=== PATIENT | male | born 1995 | race Two or more races ===

== ENCOUNTER 2017-07-30 10:13 | Emergency (ER) | payer OTHER ==
[~2017-07-30] VITALS: Ht 172.7 cm; Wt 68.0 kg
[2017-07-30] MEDS ORDERED: IBUPROFEN 600 MG TAB PO ONE ×3 (10:32→17:45)
[2017-07-30 11:28] LABS: CONDITION Y; DEFINITIVE SEE PRINTOUT; Hematocrit 51.7 % (41.0-53.0); Hemoglobin 18.4 g/dL (13.5-17.5); SUSPECT SEE PRINTOUT
[2017-07-30 11:35] LABS: Albumin 3.8 g/dL (3.4-5.0); Alkaline Phosphatase 69 U/L (45-117); Anion Gap 13 (5-15); Aspartate Aminotransferase 31 U/L (15-37); BUN/Creatinine Ratio 13.1; Bilirubin, Total 1.8 mg/dL (0.2-1.0); Blood Urea Nitrogen 19 mg/dL (7-18); Calcium 8.7 mg/dL (8.5-10.1); Carbon Dioxide 33 mmol/L (21-32); Chloride 71 mmol/L (98-107); GFR African American 77 mL/min; GFR Non-African American 64 mL/min; Glucose 137 mg/dL (74-106)
[2017-07-30 11:36] LABS: Sodium 117 mmol/L (136-145)
[2017-07-30 11:37] LABS: Potassium 2.3 mmol/L (3.5-5.1)
[2017-07-30 11:38] LABS: Mean Corpuscular Hemoglobin 30.8 pg (28.0-32.0); Mean Corpuscular Hgb Conc. 35.5 g/dL (32.0-36.0); Mean Corpuscular Volume 86.6 fL (80.0-100.0); Mean Platelet Volume 9.4 fL (7.4-10.4); Platelet Count (auto) 212 10^3/uL (140-450); White Blood Cell 16.9 10^3/uL (4.4-10.8)
[2017-07-30] MEDS ORDERED: SODIUM CHLORIDE 0.9% 1,000 ML IV ONE ×3 (11:38→14:55)
[2017-07-30] MEDS ORDERED: POTASSIUM CHL 10% (20 MEQ/15ML) 15ml ORAL SOLN PO ONE (11:45)
[2017-07-30 11:51] LABS: Giant Platelets Moderate; Metamyelocytes % 0; Myelocytes % 0; Platelet Estimate Adequate; Promyelocytes % 0; Reactive Lymphocytes 0
[2017-07-30] MEDS: POTASSIUM CHL 20MEQ/100ML 100 ML IV SCH ×4 (11:52→17:49)
[2017-07-30 13:32] LABS: Acetaminophen < 2.0 ug/mL (10-30)
[2017-07-30] MEDS ORDERED: ONDANSETRON HCL 4 MG/2 ML VIAL ONE (13:34)
[2017-07-30] MEDS ORDERED: ONDANSETRON HCL 4 MG/2 ML VIAL IV ONE (13:45)
[2017-07-30 13:52] LABS: Salicylate < 0.2 mg/dL (2.8-20.0)
[2017-07-30] MEDS ORDERED: cefTRIAXone 1GM/50ML D5W 50 ML IV ONE (15:00)
[2017-07-30 15:22] LABS: Basophils # (auto) 0 uL; Basophils % (auto) 0.3 % (0.0-2.0); Eosinophils # (auto) 0 uL; Eosinophils % (auto) 0.1 % (0.0-7.0); Hematocrit 44.5 % (41.0-53.0); Hemoglobin 16.3 g/dL (13.5-17.5); Lymphocytes # (auto) 0.7 uL; Lymphocytes % (auto) 5.3 % (10.0-50.0); Mean Corpuscular Hemoglobin 30.7 pg (28.0-32.0); Mean Corpuscular Hgb Conc. 36.6 g/dL (32.0-36.0); Mean Platelet Volume 8.9 fL (7.4-10.4); Monocytes # (auto) 1.5 uL; Monocytes % (auto) 10.8 % (0.0-12.0); Neutrophils # (auto) 11.4 uL; Neutrophils % (auto) 83.5 % (37.0-80.0); Nucleated Red Blood Cells % 0.2 %; Platelet Count (auto) 153 10^3/uL (140-450); Red Cell Distribution Width 12.9 % (11.6-16.0); White Blood Cell 13.7 10^3/uL (4.4-10.8)
[2017-07-30 15:27] LABS: Albumin 3.2 g/dL (3.4-5.0); Calcium 7.4 mg/dL (8.5-10.1)
[2017-07-30 15:32] LABS: Bilirubin, Total 1.8 mg/dL (0.2-1.0); Total Protein 6.8 g/dL (6.4-8.2)
[2017-07-30] MEDS ORDERED: PROMETHAZINE HCL 25 MG/ML 1ML ONE (15:33)
[2017-07-30 15:39] LABS: INR 1.08 (0.9-1.15); Partial Thromboplastin Time 30.2 sec (22.64-33.71); Prothrombin Time 11.8 sec (9.37-12.3)
[2017-07-30 15:42] LABS: Potassium 2.6 mmol/L (3.5-5.1)
[2017-07-30] MEDS ORDERED: PROMETHAZINE HCL 25 MG/ML 1ML IV ONE (15:45)
[2017-07-30 18:26] VITALS: BP 143/84
== END 2017-07-30 18:56 | disposition short-term general hospital (02) ==
LOC: ER 10:13
DX: A41.9 Sepsis, unspecified organism (principal); E87.1 Hypo-osmolality and hyponatremia; E87.6 Hypokalemia; J98.2 Interstitial emphysema
CPT/HCPCS: 36415; 71010; 71250; 74176; 80053; 80307; 80320; 80329; 83605; 83735; 84484; 85007; 85025; 85027; 85610; 85730; 87040; 93005; 94761; 96361; 96365; 96366; 96368; 96375; 99285; J0696; J2405; J2550; J3480